=== PATIENT | male | born 1960 | race Hispanic/Latino ===

== ENCOUNTER 2024-08-23 16:34 | Inpatient (IN) | payer MEDICARE ==
[~2024-08-23] VITALS: Ht 175.3 cm; Wt 81.6 kg
[~2024-08-23 16:34] MED LIST: CEFDINIR300 MG PO; DOXYCYCLINE HY100 MG PO
[2024-08-23 16:39] VITALS: TEMP 98.5
[2024-08-23 17:07] LABS: BASOPHILS # (AUTO) 0.1 (0.0-0.1); BASOPHILS % 1.5 % (0.0-1.0); EOSINOPHILS # (AUTO) 0.1 (0.0-0.4); EOSINOPHILS % 2.6 % (0.0-6.0); HEMATOCRIT 39.2 % (38.2-49.6); HEMOGLOBIN 12.6 g/dL (14.0-18.0); LYMPHOCYTES # (AUTO) 1.7 (1.0-3.2); LYMPHOCYTES % 30.8 % (18.0-39.1); MEAN CORPUSCULAR HEMOGLOBIN 30.1 pg (28-32); MEAN CORPUSCULAR HGB CONC 32.1 g/dL (31-35); MEAN CORPUSCULAR VOLUME 93.6 fL (81-99); MONOCYTES # (AUTO) 0.4 (0.2-0.8); MONOCYTES % 6.7 % (4.4-11.3); NEUTROPHILS # (AUTO) 3.1 (2.1-6.9); NEUTROPHILS % 58.2 % (38.7-80.0); PLATELET COUNT 169 x10e3/uL (140-360); RED BLOOD COUNT 4.19 x10e6/uL (4.3-5.7); RED CELL DISTRIBUTION WIDTH 13.2 % (11.7-14.4); WHITE BLOOD COUNT 5.35 x10e3/uL (4.8-10.8)
[2024-08-23] MEDS: ASPIRIN 81 MG CHEW TAB PO STA (17:08)
[2024-08-23 17:12] LABS: INR 0.96; PARTIAL THROMBOPLASTIN TIME 26.3 seconds (23.8-35.5); PROTHROMBIN TIME 13.3 seconds (11.9-14.5)
[2024-08-23 17:22] LABS: ALBUMIN 3.2 g/dL (3.5-5.0); ALBUMIN/GLOBULIN RATIO 0.9 (0.8-2.0); ANION GAP 13.1 mmol/L (8-16); BILIRUBIN,TOTAL 0.3 mg/dL (0.2-1.2); CALCIUM 8.1 mg/dL (8.4-10.2); CREATININE, SERUM 2.6 mg/dL (0.72-1.25); MAGNESIUM 1.5 MG/DL (1.3-2.1); POTASSIUM 5.1 mmol/L (3.5-5.1); TOTAL PROTEIN 6.9 g/dL (6.5-8.1)
[2024-08-23 17:28] LABS: TROPONIN I 0.027 ng/mL (0-0.300)
[2024-08-23] MEDS ORDERED: ONDANSETRON HCL INJ 2MG/ML 2ML 2 MG/ML VIAL IV PRN (18:00)
[2024-08-23 18:31] VITALS: PULSE 97; RESP 16
[2024-08-23] MEDS: SODIUM CHLORIDE 0.9% 1000ML 1,000 ML IV ONE (18:32)
[2024-08-23 20:00] VITALS: BP 179/95; PULSE 95; RESP 17; TEMP 98; O2SAT 97
[2024-08-23 21:00] VITALS: BP 166/90; PULSE 90; RESP 16; TEMP 98.5; O2SAT 98
[2024-08-24] VITALS (8 sets, daily range): BP systolic 133–191; BP diastolic 74–104; PULSE 85–92; RESP 17–18; TEMP 97.7–98.1; O2SAT 97–98
[2024-08-24 05:31] LABS: BASOPHILS # (AUTO) 0.1 (0.0-0.1); EOSINOPHILS # (AUTO) 0.2 (0.0-0.4); EOSINOPHILS % 2.9 % (0.0-6.0); HEMATOCRIT 35.7 % (38.2-49.6); HEMOGLOBIN 11.2 g/dL (14.0-18.0); LYMPHOCYTES # (AUTO) 1.9 (1.0-3.2); LYMPHOCYTES % 31.9 % (18.0-39.1); MEAN CORPUSCULAR HEMOGLOBIN 30.3 pg (28-32); MEAN CORPUSCULAR HGB CONC 31.4 g/dL (31-35); MEAN CORPUSCULAR VOLUME 96.5 fL (81-99); MONOCYTES # (AUTO) 0.5 (0.2-0.8); MONOCYTES % 8.3 % (4.4-11.3); NEUTROPHILS # (AUTO) 3.2 (2.1-6.9); NEUTROPHILS % 55.7 % (38.7-80.0); PLATELET COUNT 151 x10e3/uL (140-360); RED CELL DISTRIBUTION WIDTH 13.3 % (11.7-14.4)
[2024-08-24 06:01] LABS: ALBUMIN 2.8 g/dL (3.5-5.0); ALBUMIN/GLOBULIN RATIO 0.8 (0.8-2.0); ANION GAP 10.9 mmol/L (8-16); BILIRUBIN,TOTAL 0.2 mg/dL (0.2-1.2); CALCIUM 7.7 mg/dL (8.4-10.2); CHOL/HDL RATIO 6.3 (3.9-4.7); CREATININE, SERUM 2.28 mg/dL (0.72-1.25); POTASSIUM 4.9 mmol/L (3.5-5.1); TOTAL PROTEIN 6.3 g/dL (6.5-8.1)
[2024-08-24] MEDS ORDERED: AMLODIPINE BESYL5 MG PO (06:16)
[2024-08-24] MEDS ORDERED: HYDRALAZINE HCL10 MG PO (06:16)
[2024-08-24] MEDS ORDERED: FLOMAX0.4 MG PO (06:16)
[2024-08-24] MEDS ORDERED: VITAMIN D250 MCG (06:16)
[2024-08-24] MEDS ORDERED: JARDIANCE25 MG (06:16)
[2024-08-24 06:36] LABS: TROPONIN I 0.026 ng/mL (0-0.300)
[2024-08-24] MEDS ORDERED: LASIX20 MG PO (06:54)
[2024-08-24] MEDS: HYDRALAZINE HCL 20 MG/ML VIAL IV PRN (13:11)
[2024-08-24] MEDS: AMLODIPINE BESYLATE 10 MG TAB PO SCH (13:11)
[2024-08-24 13:31] LABS: TROPONIN I 0.02 ng/mL (0-0.300)
[2024-08-24] MEDS: SODIUM CHLORIDE 0.9% 1000ML 1,000 ML IV ONE (16:37)
[2024-08-24 17:03] LABS: BILIRUBIN,URINE NEGATIVE (NEGATIVE); CLARITY,URINE SL CLOUDY (CLEAR); COLOR,URINE YELLOW (YELLOW); GLUCOSE, URINE 1+ (NEGATIVE); KETONES,URINE NEGATIVE (NEGATIVE); LEUKOCYTE ESTERASE ,URINE NEGATIVE (NEGATIVE); NITRITE,URINE NEGATIVE (NEGATIVE); PH,URINE 5.5 (5 - 7); PROTEIN,URINE DIPSTICK >=300 (NEGATIVE); URINE UROBILINOGEN 0.2 mg/dL (0.2 - 1)
[2024-08-24 17:23] LABS: EPITHELIAL CELLS,URINE RARE /LPF; RBC,URINE 0-5 /HPF (0-5); WBC,URINE (MAN) 0-5 /HPF (0-5)
[2024-08-24] MEDS ORDERED: DEXTROSE 50% SYRINGE 50 ML IV PRN (19:30)
[2024-08-24] MEDS: INSULIN LISPRO 100 UNIT/1 ML 3ML VIAL SQ SCH (20:15)
[2024-08-25] VITALS (8 sets, daily range): BP systolic 131–180; BP diastolic 58–81; PULSE 91–98; RESP 19–20; TEMP 97.4–98.2; O2SAT 95–100
[2024-08-25 06:35] LABS: ANION GAP 10.8 mmol/L (8-16); CALCIUM 7.5 mg/dL (8.4-10.2); CREATININE, SERUM 2.33 mg/dL (0.72-1.25); POTASSIUM 4.8 mmol/L (3.5-5.1)
[2024-08-25] MEDS: HYDRALAZINE HCL 25 MG TAB PO SCH (17:36)
[2024-08-26] VITALS (7 sets, daily range): BP systolic 111–155; BP diastolic 69–83; PULSE 78–95; RESP 18–20; TEMP 97.5–98.8; O2SAT 97–100
[2024-08-26 05:17] LABS: BASOPHILS # (AUTO) 0.1 (0.0-0.1); BASOPHILS % 0.9 % (0.0-1.0); EOSINOPHILS # (AUTO) 0.2 (0.0-0.4); EOSINOPHILS % 3.3 % (0.0-6.0); HEMATOCRIT 35.8 % (38.2-49.6); HEMOGLOBIN 11.1 g/dL (14.0-18.0); LYMPHOCYTES # (AUTO) 1.9 (1.0-3.2); LYMPHOCYTES % 32.1 % (18.0-39.1); MEAN CORPUSCULAR HEMOGLOBIN 29.8 pg (28-32); MONOCYTES # (AUTO) 0.4 (0.2-0.8); MONOCYTES % 7.2 % (4.4-11.3); NEUTROPHILS # (AUTO) 3.3 (2.1-6.9); NEUTROPHILS % 56.2 % (38.7-80.0); PLATELET COUNT 143 x10e3/uL (140-360); RED BLOOD COUNT 3.73 x10e6/uL (4.3-5.7); RED CELL DISTRIBUTION WIDTH 12.8 % (11.7-14.4)
[2024-08-26 05:37] LABS: ALBUMIN 2.7 g/dL (3.5-5.0); ANION GAP 11.6 mmol/L (8-16); CALCIUM 8.1 mg/dL (8.4-10.2); CREATININE, SERUM 2.09 mg/dL (0.72-1.25); MAGNESIUM 1.6 MG/DL (1.3-2.1); POTASSIUM 4.6 mmol/L (3.5-5.1)
[2024-08-26] MEDS: SODIUM BICARBONATE 650 MG TAB PO SCH (17:16)
[2024-08-27] VITALS: BP 148/81; PULSE 90; RESP 18; TEMP 98.2; O2SAT 97
[2024-08-27 04:00] VITALS: BP 151/83; PULSE 91; RESP 18; TEMP 97.9; O2SAT 100
[2024-08-27 05:44] LABS: BASOPHILS # (AUTO) 0.1 (0.0-0.1); BASOPHILS % 1.2 % (0.0-1.0); EOSINOPHILS # (AUTO) 0.2 (0.0-0.4); HEMATOCRIT 34.6 % (38.2-49.6); HEMOGLOBIN 10.8 g/dL (14.0-18.0); LYMPHOCYTES % 40.1 % (18.0-39.1); MEAN CORPUSCULAR HGB CONC 31.2 g/dL (31-35); MEAN CORPUSCULAR VOLUME 96.1 fL (81-99); MONOCYTES # (AUTO) 0.4 (0.2-0.8); MONOCYTES % 7.7 % (4.4-11.3); NEUTROPHILS # (AUTO) 2.4 (2.1-6.9); NEUTROPHILS % 47.8 % (38.7-80.0); PLATELET COUNT 126 x10e3/uL (140-360); RED CELL DISTRIBUTION WIDTH 13.1 % (11.7-14.4); WHITE BLOOD COUNT 4.94 x10e3/uL (4.8-10.8)
[2024-08-27 06:12] LABS: ANION GAP 11.2 mmol/L (8-16); CALCIUM 7.7 mg/dL (8.4-10.2); CREATININE, SERUM 2.25 mg/dL (0.72-1.25); MAGNESIUM 1.7 MG/DL (1.3-2.1)
[2024-08-27 06:17] LABS: POTASSIUM 5.2 mmol/L (3.5-5.1)
[2024-08-27 08:33] VITALS: BP 138/66; PULSE 91; RESP 17; TEMP 98.1; O2SAT 97
[2024-08-27 08:45] VITALS: BP 138/66; PULSE 91; RESP 17; TEMP 98.1; O2SAT 97
[2024-08-27] MEDS: HYDROCODONE/APAP 5MG-325MG TAB PO ONE (10:15)
[2024-08-27] MEDS: SOD POLYSTYRENE SULFONATE SUSP 15 GM/60 ML BTL PO ONE (10:37)
[2024-08-27] MEDS ORDERED: JARDIANCE10 MG PO (10:51)
[2024-08-27] MEDS ORDERED: AZITHROMYCIN250 MG PO (10:51)
[2024-08-27] MEDS ORDERED: CEFUROXIME250 MG PO (10:51)
[2024-08-27] MEDS ORDERED: HYDRALAZINE HCL25 MG PO (10:51)
[2024-08-27] MEDS ORDERED: SODIUM BICARBO650 MG PO (10:51)
[2024-08-27] MEDS ORDERED: ULTRAM 50MG50 MG PO (11:23)
[2024-08-27 16:00] VITALS: BP 141/78; PULSE 55; RESP 16; TEMP 98.4; O2SAT 95
[2024-08-27] MEDS ORDERED: SODIUM CHLORIDE 0.9% 1000ML 1,000 ML ONE (16:26)
[2024-09-03 10:18] LABS: SPE ALPHA 1 GLOBULIN 0.2; SPE ALPHA 2 GLOBULIN 0.7
[2024-09-03 10:19] LABS: SPE GAMMA GLOBULIN 1.3
[2024-09-03 10:20] LABS: GLOBULIN TOTAL 3.2; KAPPA LIGHT CHAINS 76.2
[2024-09-03 10:21] LABS: A/G RATIO 0.9; KAPPA/LAMBDA RATIO 1.47
== END 2024-08-27 14:19 | disposition home or self-care (01) | DRG 194 ==
LOC: ER 16:36 → ERHOLD 18:03 → MED/SURG2 20:35
PROVIDERS: ADMIT Internal Medicine; ATTEND Internal Medicine
DX: J18.9 Pneumonia, unspecified organism (principal); N17.9 Acute kidney failure, unspecified; I12.9 Hypertensive chronic kidney disease with stage 1 through stage 4 chronic kidney disease, or unspecified chronic kidney disease; E11.22 Type 2 diabetes mellitus with diabetic chronic kidney disease; E11.65 Type 2 diabetes mellitus with hyperglycemia; N18.30 Chronic kidney disease, stage 3 unspecified; E78.5 Hyperlipidemia, unspecified; R79.89 Other specified abnormal findings of blood chemistry; Z88.0 Allergy status to penicillin; Z83.3 Family history of diabetes mellitus
CPT/HCPCS: 36415; 71046; 71250; 76770; 80048; 80053; 80061; 81001; 82040; 82550; 82948; 83735; 83880; 84165; 84484; 85025; 85610; 85730; 87040; 93005; 96372; 99252; 99284; J0360; J0690; J0696; J7030; J7050

== ENCOUNTER 2024-11-13 06:17 | Emergency (ER) | payer MEDICARE ==
[~2024-11-13] VITALS: Ht 175.3 cm; Wt 81.6 kg
[~2024-11-13 06:17] MED LIST changes: +AMLODIPINE BESYL5 MG PO; +AZITHROMYCIN250 MG PO; +CEFUROXIME250 MG PO; +FLOMAX0.4 MG PO; +HYDRALAZINE HCL10 MG PO; +HYDRALAZINE HCL25 MG PO; +JARDIANCE10 MG PO; +JARDIANCE25 MG; +LASIX20 MG PO; +SODIUM BICARBO650 MG PO; +ULTRAM 50MG50 MG PO; +VITAMIN D250 MCG
[2024-11-13 06:57] VITALS: TEMP 98.7
[2024-11-13 07:09] LABS: BASOPHILS # (AUTO) 0.1 (0.0-0.1); BASOPHILS % 0.8 % (0.0-1.0); EOSINOPHILS # (AUTO) 0.2 (0.0-0.4); EOSINOPHILS % 3.4 % (0.0-6.0); HEMATOCRIT 38.5 % (38.2-49.6); HEMOGLOBIN 11.9 g/dL (14.0-18.0); LYMPHOCYTES # (AUTO) 2.2 (1.0-3.2); LYMPHOCYTES % 35.5 % (18.0-39.1); MEAN CORPUSCULAR HEMOGLOBIN 29.9 pg (28-32); MEAN CORPUSCULAR HGB CONC 30.9 g/dL (31-35); MEAN CORPUSCULAR VOLUME 96.7 fL (81-99); MONOCYTES # (AUTO) 0.5 (0.2-0.8); MONOCYTES % 7.9 % (4.4-11.3); NEUTROPHILS # (AUTO) 3.2 (2.1-6.9); NEUTROPHILS % 52.1 % (38.7-80.0); PLATELET COUNT 173 x10e3/uL (140-360); RED BLOOD COUNT 3.98 x10e6/uL (4.3-5.7); RED CELL DISTRIBUTION WIDTH 13.2 % (11.7-14.4); WHITE BLOOD COUNT 6.22 x10e3/uL (4.8-10.8)
[2024-11-13 07:19] LABS: INR 0.9; PROTHROMBIN TIME 12.7 seconds (11.9-14.5)
[2024-11-13 07:30] LABS: ALBUMIN 2.8 g/dL (3.5-5.0); ALBUMIN/GLOBULIN RATIO 0.6 (0.8-2.0); ANION GAP 11.5 mmol/L (8-16); BILIRUBIN,TOTAL 0.4 mg/dL (0.2-1.2); CALCIUM 7.8 mg/dL (8.4-10.2); CREATININE, SERUM 2.05 mg/dL (0.72-1.25); POTASSIUM 4.5 mmol/L (3.5-5.1); TOTAL PROTEIN 7.2 g/dL (6.5-8.1)
[2024-11-13 07:35] LABS: TROPONIN I 0.032 ng/mL (0-0.300)
[2024-11-13] MEDS: SODIUM CHLORIDE 0.9% 1000ML 1,000 ML IV SCH (09:13)
[2024-11-13] MEDS ORDERED: IOPAMIDOL 370 MG/ML 100 ML INFUS..BTL INJ ONE (09:53)
[2024-11-13] MEDS: CEFTRIAXONE 2 GM in SODIUM CHLORIDE 0.9% 100 ML IV ONE (10:15)
[2024-11-13] MEDS: Doxycycline IV 100 MG in SODIUM CHLORIDE 0.9% 100 ML IV ONE (11:20)
[2024-11-13 12:16] VITALS: BP 197/99
[2024-11-13] MEDS: HYDRALAZINE HCL 20 MG/ML VIAL IV STA (12:16)
[2024-11-13 12:45] VITALS: PULSE 93; RESP 20; O2SAT 93
== END 2024-11-13 12:53 | disposition other institution (70) ==
LOC: ER 06:20
DX: R04.2 Hemoptysis (principal); J18.9 Pneumonia, unspecified organism; I12.9 Hypertensive chronic kidney disease with stage 1 through stage 4 chronic kidney disease, or unspecified chronic kidney disease; E11.22 Type 2 diabetes mellitus with diabetic chronic kidney disease; E11.65 Type 2 diabetes mellitus with hyperglycemia; N18.9 Chronic kidney disease, unspecified; E78.5 Hyperlipidemia, unspecified; R94.31 Abnormal electrocardiogram [ECG] [EKG]
CPT/HCPCS: 36415; 71260; 80053; 83605; 83880; 84484; 85025; 85610; 87040; 93005; 99284; J0360; J0696; J2470; J7030; J7050; Q9967